=== PATIENT | male | born 1945 | race Caucasian/White ===

== ENCOUNTER 2020-10-12 06:55 | Outpatient (NON) | payer OTHER, SELFPAY ==
[2020-10-12 20:58] LABS: SARS-CoV-2 RNA PCR Negative
== END 2020-10-12 06:56 ==
LOC: ANHCOVIDDT 06:59
PROVIDERS: Visit Provider Internal Medicine
DX: Z20.828 Contact with and (suspected) exposure to other viral communicable diseases (principal)
CPT/HCPCS: 87635; C9803; U0003

== ENCOUNTER → 2020-12-30 06:50 | Outpatient (CLI) | payer OTHER, SELFPAY ==
[2020-12-30 22:34] LABS: SARS-CoV-2 RNA PCR Negative
== END ==
PROVIDERS: PCP Internal Medicine; Visit Provider Internal Medicine
DX: Z20.822 Contact with and (suspected) exposure to COVID-19 (principal); J32.9 Chronic sinusitis, unspecified
CPT/HCPCS: C9803; U0003; U0005